=== PATIENT | male | born 1965 | race Caucasian/White ===

== ENCOUNTER 2019-04-05 08:36 | Emergency (ER) | payer MEDICARE, OTHER ==
[2019-04-05 09:24] LABS: Appearance,Urine Clear (Clear); Bilirubin,Urine Negative (Negative); Blood,Urine Negative (Negative); Color,Urine Colorless; Glucose,Urine (UA) 3+ (Negative); Ketones,Urine Negative (Negative); Leukocyte Esterase,Urine Negative (Negative); Nitrite,Urine Negative (Negative); Protein,Urine Negative (Negative); Specific Gravity,Urine 1.002 (1.001-1.035); Urobilinogen,Urine <2.0 mg/dL (<2.0)
--- NOTE | 2019-04-05 09:44 | ED ---
Recheck HPI - General Chief Complaint: Recheck/Abnormal Lab/Rx Stated Complaint: Low sodium Time Seen by Provider: 04/05/19 08:55 Source: patient, RN notes reviewed Mode of arrival: wheelchair Limitations: no limitations - History of Present Illness Initial Comments: This is a 53-year-old male who presents dizziness lightheadedness he relates to being since his insulin yet changed or last several weeks. He feels fatigued he feels like he has vertigo. Feels lightheaded when he tries to walk he states his been urinating frequently. No fevers chills nausea vomiting sweats however. Additionally his doctor sent him over due to fear of low sodium apparently this is been found on outpatient laboratory work. - Related Data Home Medications Medication Instructions Recorded Confirmed Aspirin EC [Ecotrin Low Dose] 81 mg PO DAILY 04/05/19 04/05/19 Glimepiride [Amaryl] 4 mg PO AC-BRKFST 04/05/19 04/05/19 Hydrochlorothiazide [Hydrodiuril] 25 mg PO DAILY 04/05/19 04/05/19 Ibuprofen [Motrin Ib] 200 - 400 mg PO Q6H PRN 04/05/19 04/05/19 Insulin Detemir [Levemir Flextouch] 60 units SQ HS 04/05/19 04/05/19 Levothyroxine Sodium [Synthroid] 25 mcg PO DAILY 04/05/19 04/05/19 Lisinopril [Zestril] 20 mg PO DAILY 04/05/19 04/05/19 Pantoprazole Sodium [Protonix] 40 mg PO DAILY 04/05/19 04/05/19 Perphenazine [Trilafon] 16 mg PO QAM 04/05/19 04/05/19 Perphenazine [Trilafon] 24 mg PO HS 04/05/19 04/05/19 sitaGLIPtin [Januvia] 100 mg PO DAILY 04/05/19 04/05/19 Previous Rx's Medication Instructions Recorded Meclizine [Antivert] 25 mg PO TID #20 tab 04/05/19 Allergies Allergy/AdvReac Type Severity Reaction Status Date / Time insulin isophane (NPH) AdvReac Nausea & Verified 04/05/19 09:41 [From Novolin 70/30 U-100 Vomiting & Insulin] Diarrhea insulin regular AdvReac Nausea & Verified 04/05/19 09:41 [From Novolin 70/30 U-100 Vomiting & Insulin] Diarrhea nefazodone [From Serzone] AdvReac Nausea & Verified 04/05/19 09:41 Vomiting & Diarrhea risperidone [From Risperdal] AdvReac Nausea & Verified 04/05/19 09:41 Vomiting & Diarrhea Review of Systems ROS Statement: Those systems with pertinent positive or pertinent negative responses have been documented in the HPI. ROS Other: All systems not noted in ROS Statement are negative. Past Medical History Past Medical History: Diabetes Mellitus History of Any Multi-Drug Resistant Organisms: None Reported Past Surgical History: Orthopedic Surgery Additional Past Surgical History / Comment(s): feet Past Psychological History: Schizophrenia Smoking Status: Never smoker Past Alcohol Use History: None Reported Past Drug Use History: None Reported General Exam - General Exam Comments Initial Comments: Is a well-developed well-nourished awake alert oriented times 3 male Limitations: no limitations General appearance: alert, in no apparent distress Head exam: Present: atraumatic, normocephalic, normal inspection Eye exam: Present: normal appearance, PERRL, EOMI. Absent: scleral icterus, conjunctival injection, periorbital swelling ENT exam: Present: mucous membranes dry Neck exam: Present: normal inspection. Absent: tenderness, meningismus, lymphadenopathy Respiratory exam: Present: normal lung sounds bilaterally. Absent: respiratory distress, wheezes, rales, rhonchi, stridor Cardiovascular Exam: Present: regular rate, normal rhythm, normal heart sounds. Absent: systolic murmur, diastolic murmur, rubs, gallop, clicks GI/Abdominal exam: Present: soft, normal bowel sounds. Absent: distended, tenderness, guarding, rebound, rigid Extremities exam: Present: normal inspection, full ROM, normal capillary refill. Absent: tenderness, pedal edema, joint swelling, calf tenderness Back exam: Present: normal inspection Neurological exam: Present: alert, oriented X3, CN II-XII intact Psychiatric exam: Present: normal affect, normal mood Skin exam: Present: warm, dry, intact, normal color. Absent: rash Course Vital Signs 04/05/19 04/05/19 04/05/19 08:41 09:07 09:22 Temperature 98.4 F Pulse Rate 97 91 Respiratory 20 18 Rate Blood Pressure 142/87 146/91 156/91 O2 Sat by Pulse 97 93 L 98 Oximetry 04/05/19 04/05/19 04/05/19 09:30 10:00 10:30 Temperature Pulse Rate 99 96 96 Respiratory 16 17 16 Rate Blood Pressure 156/91 159/99 162/99 O2 Sat by Pulse 99 98 98 Oximetry 04/05/19 04/05/19 04/05/19 11:00 11:30 12:00 Temperature Pulse Rate 101 H 98 97 Respiratory 18 16 25 H Rate Blood Pressure 171/78 168/108 157/105 O2 Sat by Pulse 98 98 Oximetry 04/05/19 04/05/19 04/05/19 12:30 13:00 13:30 Temperature Pulse Rate 89 97 93 Respiratory 16 17 16 Rate Blood Pressure 162/94 159/95 150/96 O2 Sat by Pulse 98 98 Oximetry 04/05/19 14:00 Temperature Pulse Rate 90 Respiratory 17 Rate Blood Pressure 150/91 O2 Sat by Pulse 97 Oximetry Medical Decision Making - Medical Decision Making I did discuss Pfizer the patient be discharged he'll be placed on Antivert he is a follow-up with his doctor return when necessary - Lab Data Result diagrams: 04/05/19 09:40 04/05/19 09:40 Lab Results 04/05/19 04/05/19 04/05/19 Range/Units 09:15 09:40 09:40 WBC 5.9 (3.8-10.6) k/uL RBC 4.34 (4.30-5.90) m/uL Hgb 12.8 L (13.0-17.5) gm/dL Hct 38.0 L (39.0-53.0) % MCV 87.5 (80.0-100.0) fL MCH 29.6 (25.0-35.0) pg MCHC 33.8 (31.0-37.0) g/dL RDW 13.6 (11.5-15.5) % Plt Count 218 (150-450) k/uL Neutrophils % 76 % Lymphocytes % 16 % Monocytes % 4 % Eosinophils % 2 % Basophils % 0 % Neutrophils # 4.5 (1.3-7.7) k/uL Lymphocytes # 0.9 L (1.0-4.8) k/uL Monocytes # 0.3 (0-1.0) k/uL Eosinophils # 0.1 (0-0.7) k/uL Basophils # 0.0 (0-0.2) k/uL PT (9.0-12.0) sec INR (<1.2) APTT (22.0-30.0) sec Sodium 133 L (137-145) mmol/L Potassium 5.1 (3.5-5.1) mmol/L Chloride 96 L (98-107) mmol/L Carbon Dioxide 26 (22-30) mmol/L Anion Gap 11 mmol/L BUN 8 L (9-20) mg/dL Creatinine 0.52 L (0.66-1.25) mg/dL Est GFR (CKD-EPI)AfAm >90 (>60 ml/min/1.73 sqM) Est GFR (CKD-EPI)NonAf >90 (>60 ml/min/1.73 sqM) Glucose 292 H (74-99) mg/dL Plasma Lactic Acid Camilo (0.7-2.0) mmol/L Calcium 9.7 (8.4-10.2) mg/dL Magnesium 1.6 (1.6-2.3) mg/dL Total Bilirubin 0.4 (0.2-1.3) mg/dL AST 41 (17-59) U/L ALT 40 (21-72) U/L Alkaline Phosphatase 60 (38-126) U/L Creatine Kinase 100 (55-170) U/L Troponin I (0.000-0.034) ng/mL NT-Pro-B Natriuret Pep pg/mL Total Protein 7.2 (6.3-8.2) g/dL Albumin 4.7 (3.5-5.0) g/dL Urine Color Colorless Urine Appearance Clear (Clear) Urine pH 7.0 (5.0-8.0) Ur Specific [place] 1.002 (1.001-1.035) Urine Protein Negative (Negative) Urine Glucose (UA) 3+ H (Negative) Urine Ketones Negative (Negative) Urine Blood Negative (Negative) Urine Nitrite Negative (Negative) Urine Bilirubin Negative (Negative) Urine Urobilinogen <2.0 (<2.0) mg/dL Ur Leukocyte Esterase Negative (Negative) 04/05/19 04/05/19 04/05/19 Range/Units 09:40 09:40 09:40 WBC (3.8-10.6) k/uL RBC (4.30-5.90) m/uL Hgb (13.0-17.5) gm/dL Hct (39.0-53.0) % MCV (80.0-100.0) fL MCH (25.0-35.0) pg MCHC (31.0-37.0) g/dL RDW (11.5-15.5) % Plt Count (150-450) k/uL Neutrophils % % Lymphocytes % % Monocytes % % Eosinophils % % Basophils % % Neutrophils # (1.3-7.7) k/uL Lymphocytes # (1.0-4.8) k/uL Monocytes # (0-1.0) k/uL Eosinophils # (0-0.7) k/uL Basophils # (0-0.2) k/uL PT 10.3 (9.0-12.0) sec INR 1.0 (<1.2) APTT 22.3 (22.0-30.0) sec Sodium (137-145) mmol/L Potassium (3.5-5.1) mmol/L Chloride (98-107) mmol/L Carbon Dioxide (22-30) mmol/L Anion Gap mmol/L BUN (9-20) mg/dL Creatinine (0.66-1.25) mg/dL Est GFR (CKD-EPI)AfAm (>60 ml/min/1.73 sqM) Est GFR (CKD-EPI)NonAf (>60 ml/min/1.73 sqM) Glucose (74-99) mg/dL Plasma Lactic Acid Camilo 1.7 (0.7-2.0) mmol/L Calcium (8.4-10.2) mg/dL Magnesium (1.6-2.3) mg/dL Total Bilirubin (0.2-1.3) mg/dL AST (17-59) U/L ALT (21-72) U/L Alkaline Phosphatase (38-126) U/L Creatine Kinase (55-170) U/L Troponin I (0.000-0.034) ng/mL NT-Pro-B Natriuret Pep 16 pg/mL Total Protein (6.3-8.2) g/dL Albumin (3.5-5.0) g/dL Urine Color Urine Appearance (Clear) Urine pH (5.0-8.0) Ur Specific [place] (1.001-1.035) Urine Protein (Negative) Urine Glucose (UA) (Negative) Urine Ketones (Negative) Urine Blood (Negative) Urine Nitrite (Negative) Urine Bilirubin (Negative) Urine Urobilinogen (<2.0) mg/dL Ur Leukocyte Esterase (Negative) 04/05/19 Range/Units 09:40 WBC (3.8-10.6) k/uL RBC (4.30-5.90) m/uL Hgb (13.0-17.5) gm/dL Hct (39.0-53.0) % MCV (80.0-100.0) fL MCH (25.0-35.0) pg MCHC (31.0-37.0) g/dL RDW (11.5-15.5) % Plt Count (150-450) k/uL Neutrophils % % Lymphocytes % % Monocytes % % Eosinophils % % Basophils % % Neutrophils # (1.3-7.7) k/uL Lymphocytes # (1.0-4.8) k/uL Monocytes # (0-1.0) k/uL Eosinophils # (0-0.7) k/uL Basophils # (0-0.2) k/uL PT (9.0-12.0) sec INR (<1.2) APTT (22.0-30.0) sec Sodium (137-145) mmol/L Potassium (3.5-5.1) mmol/L Chloride (98-107) mmol/L Carbon Dioxide (22-30) mmol/L Anion Gap mmol/L BUN (9-20) mg/dL Creatinine (0.66-1.25) mg/dL Est GFR (CKD-EPI)AfAm (>60 ml/min/1.73 sqM) Est GFR (CKD-EPI)NonAf (>60 ml/min/1.73 sqM) Glucose (74-99) mg/dL Plasma Lactic Acid Camilo (0.7-2.0) mmol/L Calcium (8.4-10.2) mg/dL Magnesium (1.6-2.3) mg/dL Total Bilirubin (0.2-1.3) mg/dL AST (17-59) U/L ALT (21-72) U/L Alkaline Phosphatase (38-126) U/L Creatine Kinase (55-170) U/L Troponin I <0.012 (0.000-0.034) ng/mL NT-Pro-B Natriuret Pep pg/mL Total Protein (6.3-8.2) g/dL Albumin (3.5-5.0) g/dL Urine Color Urine Appearance (Clear) Urine pH (5.0-8.0) Ur Specific [place] (1.001-1.035) Urine Protein (Negative) Urine Glucose (UA) (Negative) Urine Ketones (Negative) Urine Blood (Negative) Urine Nitrite (Negative) Urine Bilirubin (Negative) Urine Urobilinogen (<2.0) mg/dL Ur Leukocyte Esterase (Negative) - EKG Data -: EKG Interpreted by Me EKG shows normal: sinus rhythm (Normal sinus rhythm a 93. Interval 140 QRS duration 92 QT since QTC 372/[address]-T wave changes) - Radiology Data Radiology results: report reviewed (I did review the imaging and reports no acute findings.), image reviewed Disposition Clinical Impression: Benign positional vertigo, Hyperglycemia due to type 1 diabetes mellitus Disposition: HOME SELF-CARE Condition: Good Instructions (If sedation given, give patient instructions): Benign Paroxysmal Positional Vertigo (ED), Dizziness (ED), Diabetic Hyperglycemia (ED) Prescriptions: Meclizine [Antivert] 25 mg PO TID #20 tab Is patient prescribed a controlled substance at d/c from ED?: No Referrals: Charity Munoz DO [Primary Care Provider] - 1-2 days
[2019-04-05 09:52] LABS: Basophils % (A) 0 %; Eosinophils # (A) 0.1 k/uL (0-0.7); Eosinophils % (A) 2 %; HGB 12.8 gm/dL (13.0-17.5); Lymphocytes # (A) 0.9 k/uL (1.0-4.8); Lymphocytes % (A) 16 %; MCH 29.6 pg (25.0-35.0); MCHC 33.8 g/dL (31.0-37.0); MCV 87.5 fL (80.0-100.0); Mean Platelet Volume 8.2; Monocytes # (A) 0.3 k/uL (0-1.0); Monocytes % (A) 4 %; Neutrophils # (A) 4.5 k/uL (1.3-7.7); Neutrophils % (A) 76 %; Platelet Count 218 k/uL (150-450); RBC 4.34 m/uL (4.30-5.90); RDW 13.6 % (11.5-15.5); WBC 5.9 k/uL (3.8-10.6)
[2019-04-05 10:02] LABS: Partial Thromboplastin Time 22.3 sec (22.0-30.0); Prothrombin Time 10.3 sec (9.0-12.0)
[2019-04-05 10:03] LABS: ALT 40 U/L (21-72); AST 41 U/L (17-59); African American GFR (CKD) >90 (>60 ml/min/1.73 sqM); Albumin 4.7 g/dL (3.5-5.0); Alkaline Phosphatase 60 U/L (38-126); Anion Gap 11 mmol/L; Blood Urea Nitrogen 8 mg/dL (9-20); Calcium 9.7 mg/dL (8.4-10.2); Carbon Dioxide 26 mmol/L (22-30); Chloride 96 mmol/L (98-107); Creatine Kinase 100 U/L (55-170); Glucose 292 mg/dL (74-99); Magnesium 1.6 mg/dL (1.6-2.3); Potassium 5.1 mmol/L (3.5-5.1); Sodium 133 mmol/L (137-145); Total Bilirubin 0.4 mg/dL (0.2-1.3); Total Protein 7.2 g/dL (6.3-8.2)
--- NOTE | 2019-04-05 10:07 | XR ---
EXAMINATION TYPE: XR chest 2V DATE OF EXAM: 04/05/2019 COMPARISON: NONE HISTORY: Hyponatremia, dizziness and weakness TECHNIQUE: Frontal and lateral views of the chest are obtained. FINDINGS: There is no focal air space opacity, pleural effusion, or pneumothorax seen. The cardiac silhouette size is within normal limits. The osseous structures are intact. There are overlying car diac leads. IMPRESSION: No acute cardiopulmonary process.
[2019-04-05 14:29] VITALS: BP 151/91; PULSE 93; RESP 18; TEMP 98.2
[2019-04-05 18:43] LABS: Hemoglobin A1C 8.5 % (4.0-6.0)
== END 2019-04-05 14:28 | disposition home or self-care (01) ==
LOC: EC 08:36
DX: E10.65 Type 1 diabetes mellitus with hyperglycemia (principal); H81.10 Benign paroxysmal vertigo, unspecified ear; F20.9 Schizophrenia, unspecified; Z88.8 Allergy status to other drugs, medicaments and biological substances; Z79.4 Long term (current) use of insulin; Z79.82 Long term (current) use of aspirin; Z79.890 Hormone replacement therapy; Z79.899 Other long term (current) drug therapy
CPT/HCPCS: 36415; 71046; 80053; 81003; 82550; 83036; 83605; 83735; 83880; 84484; 85025; 85610; 85730; 93005; 99284

== ENCOUNTER 2021-06-15 13:42 | Inpatient (IN) | payer MEDICARE, OTHER ==
[2021-06-15] MEDS ORDERED: LORazepam 2 MG/ML INJ IM STA (14:24)
--- NOTE | 2021-06-15 14:25 | ED ---
General Adult HPI - General Source: patient, RN notes reviewed, old records reviewed Mode of arrival: ambulatory Limitations: no limitations <Robert Young - Last Filed: 06/15/21 14:41> <Jan Steve - Last Filed: 06/15/21 15:58> - General Chief complaint: Chest Pain Stated complaint: weakness, Dizziness Time Seen by Provider: 06/15/21 14:00 - History of Present Illness Initial comments: This is a 56-year-old male who has past medical history significant for anxiety. Patient states she's been treated for that he stopped this medication in the morning because he feels so for the last 6 months his body is feeling. Patient is very anxious and tearful during the interview. Patient states his body is failing and he said this over and over again at least 10 times while I was in the room. Patient has no specific complaint. Patient denies any pain patient denies chest pain abdominal pain. Patient denies near syncopal episodes. Patient denies any fever chills. Patient denies any shortness of breath or difficulty breathing. Patient just keeps repeating that he thinks his body is feeling pretty also admits to not taking his psychiatric medications for the last 2 weeks. (Robert Young) - Related Data Home Medications Medication Instructions Recorded Confirmed Aspirin EC [Ecotrin Low Dose] 81 mg PO DAILY 04/05/19 04/05/19 Glimepiride [Amaryl] 4 mg PO AC-BRKFST 04/05/19 04/05/19 Ibuprofen [Motrin Ib] 200 - 400 mg PO Q6H PRN 04/05/19 04/05/19 Insulin Detemir [Levemir Flextouch] 60 units SQ HS 04/05/19 04/05/19 Levothyroxine Sodium [Synthroid] 25 mcg PO DAILY 04/05/19 04/05/19 Pantoprazole Sodium [Protonix] 40 mg PO DAILY 04/05/19 04/05/19 Perphenazine [Trilafon] 16 mg PO QAM 04/05/19 04/05/19 Perphenazine [Trilafon] 24 mg PO HS 04/05/19 04/05/19 hydroCHLOROthiazide [Hydrodiuril] 25 mg PO DAILY 04/05/19 04/05/19 lisinopriL [Zestril] 20 mg PO DAILY 04/05/19 04/05/19 sitaGLIPtin [Januvia] 100 mg PO DAILY 04/05/19 04/05/19 Previous Rx's Medication Instructions Recorded Meclizine [Antivert] 25 mg PO TID #20 tab 04/05/19 Allergies Allergy/AdvReac Type Severity Reaction Status Date / Time insulin isophane (NPH) AdvReac Nausea & Verified 06/15/21 14:04 [From Novolin 70/30 U-100 Vomiting & Insulin] Diarrhea insulin regular AdvReac Nausea & Verified 06/15/21 14:04 [From Novolin 70/30 U-100 Vomiting & Insulin] Diarrhea nefazodone [From Serzone] AdvReac Nausea & Verified 06/15/21 14:04 Vomiting & Diarrhea risperidone [From Risperdal] AdvReac Nausea & Verified 06/15/21 14:04 Vomiting & Diarrhea Review of Systems ROS Other: All systems not noted in ROS Statement are negative. <Robert Young - Last Filed: 06/15/21 14:41> ROS Other: All systems not noted in ROS Statement are negative. <Jan Steve - Last Filed: 06/15/21 15:58> ROS Statement: Those systems with pertinent positive or pertinent negative responses have been documented in the HPI. Past Medical History Past Medical History: Diabetes Mellitus History of Any Multi-Drug Resistant Organisms: None Reported Past Surgical History: Orthopedic Surgery Additional Past Surgical History / Comment(s): feet Past Psychological History: Schizophrenia Smoking Status: Current every day smoker Past Alcohol Use History: None Reported Past Drug Use History: None Reported <Robert Young - Last Filed: 06/15/21 14:41> General Exam Limitations: no limitations <Robert Young - Last Filed: 06/15/21 14:41> - General Exam Comments Initial Comments: GENERAL: Patient is well-developed and well-nourished. Patient is nontoxic and well- hydrated and is in no acute distress. ENT: Neck is soft and supple. No significant lymphadenopathy is noted. Oropharynx is clear. Moist mucous membranes. Neck has full range of motion without eliciting any pain. EYES: The sclera were anicteric and conjunctiva were pink and moist. Extraocular movements were intact and pupils were equal round and reactive to light. Eyelids were unremarkable. PULMONARY: Unlabored respirations. Good breath sounds bilaterally. No audible rales rhonchi or wheezing was noted. CARDIOVASCULAR: There is a regular rate and rhythm without any murmurs gallops or rubs. ABDOMEN: Soft and nontender with normal bowel sounds. SKIN: Skin is clear with no lesions or rashes and otherwise unremarkable. NEUROLOGIC: Patient is alert and oriented x3. Cranial nerves II through XII are grossly intact. Motor and sensory are also intact. Normal speech, volume and content. Symmetrical smile. MUSCULOSKELETAL: Normal extremities with adequate strength and full range of motion. No lower extremity swelling or edema. No calf tenderness. LYMPHATICS: No significant lymphadenopathy is noted PSYCHIATRIC: Patient is very anxious and tearful during interview he stated to me that he thought 2 weeks ago he might so he stopped his psychiatric medications and is zetia (Robert Young) Course <Jan Steve - Last Filed: 06/15/21 15:58> Vital Signs 06/15/21 14:04 Temperature 98.6 F Pulse Rate 91 Respiratory 18 Rate Blood Pressure 138/88 O2 Sat by Pulse 98 Oximetry - Reevaluation(s) Reevaluation #1: 06/15/21 15:57 The patient was endorsed me at shift change pending laboratory results. I did reevaluate the patient he is still feeling very anxious and feels like his bicycle him he feels off balance and his is going to fall. He was found have a sodium level of 123. Evidence of dehydration clinically. No focal deficits. I did discuss the case with Dr. Gamboa the patient will be admitted for IV hydration and inpatient evaluation (Jan Steve) EKG Findings - EKG Results: EKG: interpreted by ERMD, sinus rhythm (Sinus rhythm of 89 [place] interval 144 QRS 96 daily since QTC 380/462 possible left atrial enlargement) <Jan Steve - Last Filed: 06/15/21 15:58> Medical Decision Making <Robert Young - Last Filed: 06/15/21 14:41> - Lab Data Result diagrams: 06/15/21 14:28 06/15/21 14:28 <Jan Steve - Last Filed: 06/15/21 15:58> - Medical Decision Making Dr. Steve taking over the care of this patient at 3 PM (Robert Young) - Lab Data Lab Results 06/15/21 06/15/21 Range/Units 14:28 14:28 WBC 5.4 (3.8-10.6) k/uL RBC 4.50 (4.30-5.90) m/uL Hgb 13.7 (13.0-17.5) gm/dL Hct 40.4 (39.0-53.0) % MCV 89.7 (80.0-100.0) fL MCH 30.4 (25.0-35.0) pg MCHC 33.9 (31.0-37.0) g/dL RDW 14.6 (11.5-15.5) % Plt Count 161 (150-450) k/uL MPV 8.0 Neutrophils % 76 % Lymphocytes % 14 % Monocytes % 6 % Eosinophils % 1 % Basophils % 0 % Neutrophils # 4.1 (1.3-7.7) k/uL Lymphocytes # 0.8 L (1.0-4.8) k/uL Monocytes # 0.3 (0-1.0) k/uL Eosinophils # 0.0 (0-0.7) k/uL Basophils # 0.0 (0-0.2) k/uL Poikilocytosis Slight Sodium 123 L (137-145) mmol/L Potassium 4.2 (3.5-5.1) mmol/L Chloride 91 L (98-107) mmol/L Carbon Dioxide 21 L (22-30) mmol/L Anion Gap 11 mmol/L BUN 7 L (9-20) mg/dL Creatinine 0.51 L (0.66-1.25) mg/dL Est GFR (CKD-EPI)AfAm >90 (>60 ml/min/1.73 sqM) Est GFR (CKD-EPI)NonAf >90 (>60 ml/min/1.73 sqM) Glucose 243 H (74-99) mg/dL Calcium 9.6 (8.4-10.2) mg/dL Total Bilirubin 0.4 (0.2-1.3) mg/dL AST 36 (17-59) U/L ALT 43 (4-49) U/L Alkaline Phosphatase 75 (38-126) U/L Total Protein 6.9 (6.3-8.2) g/dL Albumin 4.5 (3.5-5.0) g/dL Disposition <Robert Young - Last Filed: 06/15/21 14:41> <Jan Steve - Last Filed: 06/15/21 15:58> Clinical Impression: Hyponatremia syndrome, Dehydration Disposition: ADMITTED IP TO THIS HOSP Condition: Fair Referrals: Charity Munoz DO [Primary Care Provider] - 1-2 days
[2021-06-15 14:49] LABS: Basophils % (A) 0 %; Eosinophils % (A) 1 %; HCT 40.4 % (39.0-53.0); HGB 13.7 gm/dL (13.0-17.5); Lymphocytes # (A) 0.8 k/uL (1.0-4.8); Lymphocytes % (A) 14 %; MCH 30.4 pg (25.0-35.0); MCHC 33.9 g/dL (31.0-37.0); MCV 89.7 fL (80.0-100.0); Monocytes # (A) 0.3 k/uL (0-1.0); Monocytes % (A) 6 %; Neutrophils # (A) 4.1 k/uL (1.3-7.7); Neutrophils % (A) 76 %; Platelet Count 161 k/uL (150-450); Poikilocytosis Slight; RDW 14.6 % (11.5-15.5); WBC 5.4 k/uL (3.8-10.6)
[2021-06-15 15:06] LABS: ALT 43 U/L (4-49); AST 36 U/L (17-59); African American GFR (CKD) >90 (>60 ml/min/1.73 sqM); Albumin 4.5 g/dL (3.5-5.0); Alkaline Phosphatase 75 U/L (38-126); Anion Gap 11 mmol/L; Blood Urea Nitrogen 7 mg/dL (9-20); Calcium 9.6 mg/dL (8.4-10.2); Carbon Dioxide 21 mmol/L (22-30); Chloride 91 mmol/L (98-107); Glucose 243 mg/dL (74-99); Non-African American GFR(CKD) >90 (>60 ml/min/1.73 sqM); Potassium 4.2 mmol/L (3.5-5.1); Sodium 123 mmol/L (137-145); Total Bilirubin 0.4 mg/dL (0.2-1.3); Total Protein 6.9 g/dL (6.3-8.2)
[2021-06-15] MEDS ORDERED: SODIUM CHLORIDE 0.9% 1,000 ML IV STA (15:44)
[2021-06-15] MEDS ORDERED: NALOXONE 0.4 MG/ML 1 ML VIAL IV PRN ×2 (15:59→17:44)
[2021-06-15] MEDS ORDERED: ACETAMINOPHEN TAB 325 MG TAB PO PRN (15:59)
[2021-06-15 16:55] LABS: Glucose,Whole Blood 257 mg/dL (75-99)
--- NOTE | 2021-06-15 17:50 | P.HPIM ---
History of Present Illness H&P Date: 06/15/21 Chief Complaint: hyponatremia 56-year-old man with medical history of diabetes type 2, hyperlipidemia, anxiety, hypertension presented with anxiety. Patient had predominantly general complaints of unease and feeling like he was going to fall and like his body was getting weaker. He could not pinpoint a particular time when the symptoms started, but feels a very severe today. He stopped taking his medication recently because he was concerned that it was making him worse. He stopped taking his psychiatric medications and his zetia. In the emergency room patient was hemodynamically stable, afebrile. Major finding during the ER course was hyponatremia warranting observation admission. Review of Systems All Systems reviewed and pertinent positives and negatives noted in HPI, all other symptoms are negative Past Medical History Past Medical History: Diabetes Mellitus, Hypertension History of Any Multi-Drug Resistant Organisms: None Reported Past Surgical History: Orthopedic Surgery Additional Past Surgical History / Comment(s): feet Smoking Status: Never smoker - Past Family History Mother Family Medical History: Coronary Artery Disease (CAD) Medications and Allergies Home Medications Medication Instructions Recorded Confirmed Type Ibuprofen [Motrin Ib] 800 mg PO Q6H 04/05/19 06/15/21 History Insulin Detemir [Levemir Flextouch] 60 units SQ HS 04/05/19 06/15/21 History Levothyroxine Sodium [Synthroid] 25 mcg PO DAILY 04/05/19 06/15/21 History Pantoprazole Sodium [Protonix] 40 mg PO DAILY 04/05/19 06/15/21 History hydroCHLOROthiazide [Hydrodiuril] 25 mg PO DAILY 04/05/19 06/15/21 History lisinopriL [Zestril] 20 mg PO HS 04/05/19 06/15/21 History sitaGLIPtin [Januvia] 100 mg PO DAILY 04/05/19 06/15/21 History Atorvastatin [Lipitor] 20 mg PO HS 06/15/21 06/15/21 History Multivit-Min/FA/Lycopen/Lutein 1 tab PO DAILY 06/15/21 06/15/21 History [Centrum Silver Tablet] Perphenazine 8mg Tablet 24 mg PO DAILY@1600 06/15/21 06/15/21 History Repaglinide 1 mg PO DAILY 06/15/21 06/15/21 History Repaglinide 2 mg PO HS 06/15/21 06/15/21 History metFORMIN HCL [Glucophage] 1,000 mg PO BID 06/15/21 06/15/21 History Allergies Allergy/AdvReac Type Severity Reaction Status Date / Time insulin isophane (NPH) AdvReac Nausea & Verified 06/15/21 16:32 [From Novolin 70/30 U-100 Vomiting & Insulin] Diarrhea insulin regular AdvReac Nausea & Verified 06/15/21 16:32 [From Novolin 70/30 U-100 Vomiting & Insulin] Diarrhea nefazodone [From Serzone] AdvReac Nausea & Verified 06/15/21 16:32 Vomiting & Diarrhea risperidone [From Risperdal] AdvReac Nausea & Verified 06/15/21 16:32 Vomiting & Diarrhea Physical Exam Osteopathic Statement: *. No significant issues noted on an osteopathic structural exam other than those noted in the History and Physical/Consult. Vitals: Vital Signs Temp Pulse Pulse Resp BP BP Pulse Ox 06/15/21 17:21 98.7 F 98 17 157/97 96 06/15/21 16:34 89 16 141/90 96 06/15/21 14:04 98.6 F 91 18 138/88 98 Intake and Output 06/15/21 06/15/21 06/15/21 06:59 14:59 22:59 Other: Weight 104.326 kg 104.326 kg Gen: awake, alert HEENT: normocephalic, atraumatic, good hearing acuity, moist mucous membranes Resp: good air exchange, breathing comfortably with no accessory muscle use CVS: good distal perfusion x 4, GI: soft, NTTP, ND : no SPT, no CVAT, johnson catheter not present MSK: no pitting edema, no clubbing Neuro: non-focal, moving all extremities Psych: cooperative, anxious mood Results CBC & Chem 7: 06/15/21 14:28 06/15/21 14:28 Labs: Abnormal Lab Results - Last 24 Hours (Table) 06/15/21 06/15/21 06/15/21 Range/Units 14:28 14:28 16:54 Lymphocytes # 0.8 L (1.0-4.8) k/uL Sodium 123 L (137-145) mmol/L Chloride 91 L (98-107) mmol/L Carbon Dioxide 21 L (22-30) mmol/L BUN 7 L (9-20) mg/dL Creatinine 0.51 L (0.66-1.25) mg/dL Glucose 243 H (74-99) mg/dL POC Glucose (mg/dL) 257 H (75-99) mg/dL Thrombosis Risk Factor Assmnt - Choose All That Apply Each Factor Represents 1 point: Age 41-60 years Thrombosis Risk Factor Assessment Total Risk Factor Score: 1 Thrombosis Risk Factor Assessment Level: Low Risk Assessment and Plan Assessment: Hyponatremia -Admit to observation -IV fluids -Serum osmolality, urine osmolality -Hold hydrochlorothiazide Hypertension Hyperlipidemia Anxiety Diabetes type 2 -Home medications reviewed and reconciled -Oral hypoglycemics were held -Continue home insulin regimen and add low-dose sliding scale insulin Patient is a full code
[2021-06-15 20:06] VITALS: RESP 16
[2021-06-15 20:59] LABS: Glucose,Whole Blood 223 mg/dL (75-99)
[2021-06-15] MEDS ORDERED: ATORVASTATIN 20 MG TAB PO SCH (21:00)
[2021-06-15] MEDS ORDERED: INSULIN DETEMIR (LEVEMIR) 100 UNIT/ML SYR SQ SCH (21:00)
[2021-06-15] MEDS ORDERED: lisinopriL 20 MG TAB PO SCH (21:00)
[2021-06-16 04:59] VITALS: BP 125/81; PULSE 91; TEMP 98
[2021-06-16] MEDS ORDERED: LEVOTHYROXINE 25 MCG TAB PO SCH (06:30)
[2021-06-16 06:43] LABS: Basophils % (A) 0 %; Eosinophils % (A) 1 %; HCT 42.7 % (39.0-53.0); HGB 14.4 gm/dL (13.0-17.5); Lymphocytes # (A) 1.1 k/uL (1.0-4.8); Lymphocytes % (A) 23 %; MCH 30.8 pg (25.0-35.0); MCHC 33.9 g/dL (31.0-37.0); Mean Platelet Volume 7.5; Monocytes # (A) 0.4 k/uL (0-1.0); Monocytes % (A) 8 %; Neutrophils # (A) 3.1 k/uL (1.3-7.7); Neutrophils % (A) 64 %; Platelet Count 168 k/uL (150-450); Poikilocytosis Slight; RBC 4.69 m/uL (4.30-5.90); RDW 14.3 % (11.5-15.5); WBC 4.9 k/uL (3.8-10.6)
[2021-06-16 07:20] LABS: Glucose,Whole Blood 206 mg/dL (75-99)
[2021-06-16 07:22] LABS: African American GFR (CKD) >90 (>60 ml/min/1.73 sqM); Anion Gap 11 mmol/L; Blood Urea Nitrogen 8 mg/dL (9-20); Calcium 10.1 mg/dL (8.4-10.2); Carbon Dioxide 25 mmol/L (22-30); Chloride 97 mmol/L (98-107); Glucose 171 mg/dL (74-99); Magnesium 1.6 mg/dL (1.6-2.3); Non-African American GFR(CKD) >90 (>60 ml/min/1.73 sqM); Potassium 4.5 mmol/L (3.5-5.1); Sodium 133 mmol/L (137-145)
[2021-06-16] MEDS ORDERED: INSULIN ASPART (NovoLOG) 100 UNIT/ML VIAL SQ SCH (07:30)
[2021-06-16] MEDS ORDERED: PANTOPRAZOLE 40 MG TABLET PO SCH (09:00)
[2021-06-16] MEDS ORDERED: MULTIVITAMINS, THERA 1 EACH TAB PO SCH (12:00)
--- NOTE | 2021-06-16 13:09 | P.DS ---
Providers Date of admission: 06/15/21 16:09 Expected date of discharge: 06/16/21 Attending physician: Betsy Gamboa MD Primary care physician: Charity Munoz Hospital Course: Hyponatremia -Admitted to observation. Started on IVF. HCTz was held. Pt recovered to normal Na of 133 by day of discharge. Had no further symptoms, and reported feeling back to baseline. D/c'd with HCTZ stopped and started on amlodipine. Pt will f/u with PCP for further titration of meds. Hypertension Hyperlipidemia Anxiety Diabetes type 2 -BP medication changes as above, otherwise, no changes. Assessment: Gen: awake, alert HEENT: normocephalic, atraumatic, good hearing acuity, moist mucous membranes Resp: good air exchange, breathing comfortably with no accessory muscle use CVS: good distal perfusion x 4, GI: soft, NTTP, ND : no SPT, no CVAT, johnson catheter not present MSK: no pitting edema, no clubbing Neuro: non-focal, moving all extremities Psych: cooperative, anxious mood Patient Condition at Discharge: Good Plan - Discharge Summary New Discharge Prescriptions: New amLODIPine [Norvasc] 5 mg PO DAILY #30 tab Continue lisinopriL [Zestril] 20 mg PO HS Ibuprofen [Motrin Ib] 800 mg PO Q6H sitaGLIPtin [Januvia] 100 mg PO DAILY Pantoprazole Sodium [Protonix] 40 mg PO DAILY Levothyroxine Sodium [Synthroid] 25 mcg PO DAILY Insulin Detemir [Levemir Flextouch Pen] 60 units SQ HS Perphenazine 8mg Tablet 24 mg PO DAILY@1600 Multivit-Min/FA/Lycopen/Lutein [Centrum Silver Tablet] 1 tab PO DAILY Repaglinide 2 mg PO HS metFORMIN HCL [Glucophage] 1,000 mg PO BID Atorvastatin [Lipitor] 20 mg PO HS Discontinued hydroCHLOROthiazide [Hydrodiuril] 25 mg PO DAILY No Action Repaglinide 1 mg PO DAILY Discharge Medication List Ibuprofen [Motrin Ib] 800 mg PO Q6H 04/05/19 [History] Insulin Detemir [Levemir Flextouch Pen] 60 units SQ HS 04/05/19 [History] Levothyroxine Sodium [Synthroid] 25 mcg PO DAILY 04/05/19 [History] Pantoprazole Sodium [Protonix] 40 mg PO DAILY 04/05/19 [History] lisinopriL [Zestril] 20 mg PO HS 04/05/19 [History] sitaGLIPtin [Januvia] 100 mg PO DAILY 04/05/19 [History] Atorvastatin [Lipitor] 20 mg PO HS 06/15/21 [History] Multivit-Min/FA/Lycopen/Lutein [Centrum Silver Tablet] 1 tab PO DAILY 06/15/21 [History] Perphenazine 8mg Tablet 24 mg PO DAILY@1600 06/15/21 [History] Repaglinide 1 mg PO DAILY 06/15/21 [History] Repaglinide 2 mg PO HS 06/15/21 [History] metFORMIN HCL [Glucophage] 1,000 mg PO BID 06/15/21 [History] amLODIPine [Norvasc] 5 mg PO DAILY #30 tab 06/16/21 [Rx] Follow up Appointment(s)/Referral(s): Charity Munoz DO [Primary Care Provider] - 1-2 days Patient Instructions/Handouts: Amlodipine (By mouth), Hyponatremia (DC) Discharge Disposition: HOME SELF-CARE
[2021-06-16] MEDS ORDERED: PERPHENAZINE 4 MG TAB PO SCH (16:00)
== END 2021-06-16 12:40 | disposition home or self-care (01) | DRG 641 ==
LOC: EC 13:42 → 5NMEDONC 16:09
PROVIDERS: ADMIT Internal Medicine; ATTEND Internal Medicine
DX: E87.1 Hypo-osmolality and hyponatremia (principal); E11.9 Type 2 diabetes mellitus without complications; Z79.4 Long term (current) use of insulin; F20.9 Schizophrenia, unspecified; E86.0 Dehydration; I10 Essential (primary) hypertension; E78.5 Hyperlipidemia, unspecified; F41.9 Anxiety disorder, unspecified; Z79.82 Long term (current) use of aspirin; Z79.890 Hormone replacement therapy; Z79.1 Long term (current) use of non-steroidal anti-inflammatories (NSAID); Z79.899 Other long term (current) drug therapy; Z88.8 Allergy status to other drugs, medicaments and biological substances; Z82.49 Family history of ischemic heart disease and other diseases of the circulatory system
CPT/HCPCS: 36415; 80048; 80053; 83735; 83930; 83935; 85025; 93005; 96372; 99284

== ENCOUNTER 2022-10-22 15:04 | Emergency (ER) | payer MEDICARE, OTHER ==
[2022-10-22 19:00] LABS: Basophils # (A) 0.1 k/uL (0-0.2); Basophils % (A) 1 %; Eosinophils # (A) 0.1 k/uL (0-0.7); Eosinophils % (A) 1 %; HCT 38.9 % (39.0-53.0); HGB 14.3 gm/dL (13.0-17.5); Lymphocytes # (A) 2.3 k/uL (1.0-4.8); Lymphocytes % (A) 26 %; MCH 30.4 pg (25.0-35.0); MCHC 36.7 g/dL (31.0-37.0); Mean Platelet Volume 7.9; Monocytes # (A) 0.4 k/uL (0-1.0); Monocytes % (A) 5 %; Neutrophils # (A) 5.9 k/uL (1.3-7.7); Neutrophils % (A) 66 %; Platelet Count 229 k/uL (150-450); RBC 4.69 m/uL (4.30-5.90); RDW 12.3 % (11.5-15.5); WBC 8.9 k/uL (3.8-10.6)
[2022-10-22 19:08] LABS: ALT 34 U/L (4-49); AST 24 U/L (17-59); African American GFR (CKD) >90 (>60 ml/min/1.73 sqM); Albumin 4.8 g/dL (3.5-5.0); Alkaline Phosphatase 71 U/L (38-126); Anion Gap 11 mmol/L; Blood Urea Nitrogen 4 mg/dL (9-20); Calcium 9.4 mg/dL (8.4-10.2); Carbon Dioxide 25 mmol/L (22-30); Chloride 96 mmol/L (98-107); Glucose 165 mg/dL (74-99); Non-African American GFR(CKD) >90 (>60 ml/min/1.73 sqM); Potassium 4.2 mmol/L (3.5-5.1); Sodium 132 mmol/L (137-145); Total Bilirubin 0.5 mg/dL (0.2-1.3); Total Protein 7.5 g/dL (6.3-8.2)
[2022-10-22 19:25] LABS: Prothrombin Time 10.2 sec (9.0-12.0)
--- NOTE | 2022-10-22 20:32 | XR ---
EXAMINATION TYPE: XR chest 2V DATE OF EXAM: 10/22/2022 COMPARISON: Chest x-ray April 05, 2019 HISTORY: Weakness. TECHNIQUE: Frontal and lateral views of the chest are obtained. FINDINGS: There is some chronic parenchymal change bilaterally without suspicious new focal air spac e opacity, pleural effusion, or pneumothorax seen. The cardiac silhouette size is stable and within normal limits. The osseous structures are intact. IMPRESSION: No acute cardiopulmonary process. No significant change from prior.
--- NOTE | 2022-10-22 20:36 | ED ---
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 The patient was clearly developmentally delayed and cannot provide a thorough history. The patient however denied any acute distress or pain and stated that he wishes feeling weak. There was no other person accompanying the patient and therefore no further history was obtained at this time. - Related Data Home Medications Medication Instructions Recorded Confirmed Ibuprofen [Motrin Ib] 800 mg PO Q6H 04/05/19 06/15/21 Insulin Detemir [Levemir Flextouch 60 units SQ HS 04/05/19 06/15/21 Pen] Levothyroxine Sodium [Synthroid] 25 mcg PO DAILY 04/05/19 06/15/21 Pantoprazole Sodium [Protonix] 40 mg PO DAILY 04/05/19 06/15/21 lisinopriL [Zestril] 20 mg PO HS 04/05/19 06/15/21 sitaGLIPtin [Januvia] 100 mg PO DAILY 04/05/19 06/15/21 Atorvastatin [Lipitor] 20 mg PO HS 06/15/21 06/15/21 Multivit-Min/FA/Lycopen/Lutein 1 tab PO DAILY 06/15/21 06/15/21 [Centrum Silver Tablet] Perphenazine 8mg Tablet 24 mg PO DAILY@1600 06/15/21 06/15/21 Repaglinide 1 mg PO DAILY 06/15/21 06/15/21 Repaglinide 2 mg PO HS 06/15/21 06/15/21 metFORMIN HCL [Glucophage] 1,000 mg PO BID 06/15/21 06/15/21 Previous Rx's Medication Instructions Recorded amLODIPine [Norvasc] 5 mg PO DAILY #30 tab 06/16/21 Allergies Allergy/AdvReac Type Severity Reaction Status Date / Time insulin isophane (NPH) AdvReac Nausea & Verified 10/22/22 15:47 [From Novolin 70/30 U-100 Vomiting & Insulin] Diarrhea insulin regular AdvReac Nausea & Verified 10/22/22 15:47 [From Novolin 70/30 U-100 Vomiting & Insulin] Diarrhea nefazodone [From Serzone] AdvReac Nausea & Verified 10/22/22 15:47 Vomiting & Diarrhea risperidone [From Risperdal] AdvReac Nausea & Verified 10/22/22 15:47 Vomiting & Diarrhea Review of Systems ROS Statement: Those systems with pertinent positive or pertinent negative responses have been documented in the HPI. ROS Other: All systems not noted in ROS Statement are negative. Past Medical History Past Medical History: Diabetes Mellitus, Hypertension History of Any Multi-Drug Resistant Organisms: None Reported Past Surgical History: Orthopedic Surgery Additional Past Surgical History / Comment(s): feet Past Psychological History: Anxiety, Schizophrenia Smoking Status: Never smoker Past Alcohol Use History: None Reported Past Drug Use History: None Reported - Past Family History Mother Family Medical History: Coronary Artery Disease (CAD) General Exam Limitations: no limitations General appearance: alert, in no apparent distress Head exam: Present: atraumatic, normocephalic Eye exam: Present: normal appearance, PERRL Pupils: Present: normal accommodation ENT exam: Present: normal exam, normal oropharynx, mucous membranes moist Neck exam: Present: normal inspection, full ROM Respiratory exam: Present: normal lung sounds bilaterally Cardiovascular Exam: Present: regular rate, normal rhythm, normal heart sounds GI/Abdominal exam: Present: soft, normal bowel sounds Extremities exam: Present: normal inspection, full ROM, normal capillary refill Back exam: Present: normal inspection, full ROM Neurological exam: Present: alert, oriented X3 (Patient is developmentally delayed), CN II-XII intact Psychiatric exam: Present: normal affect, normal mood Skin exam: Present: warm, dry Course Vital Signs 10/22/22 10/22/22 10/22/22 15:44 20:41 20:56 Temperature 98.7 F 98.4 F Pulse Rate 106 H 124 H 128 H Respiratory 20 20 18 Rate Blood Pressure 165/98 192/111 199/119 O2 Sat by Pulse 97 97 96 Oximetry EKG Findings - EKG Comments: EKG Findings:: An EKG was obtained and was interpreted by myself. EKG showed a rate of 102, CO intervals 141, QRS duration of 106 and QTC of 417. This EKG showed a sinus tachycardia with no ST segment elevation or depression noted. Medical Decision Making - Medical Decision Making Was pt. sent in by a medical professional or institution (JONATHAN Vargas, VISUAL ARTIST, urgent care, hospital, or longterm...) When possible be specific @ -No Did you speak to anyone other than the patient for history (EMS, parent, family, police, friend...)? What history was obtained from this source @ -No Did you review nursing and triage notes (agree or disagree)? Why? @ -I reviewed and agree with nursing and triage notes Were old charts reviewed (outside hosp., previous admission, EMS record, old EKG, old radiological studies, urgent care reports/EKG's, longterm records)? Report findings @ -No old charts were reviewed Differential Diagnosis (chest pain, altered mental status, abdominal pain women, abdominal pain men, vaginal bleeding, weakness, fever, dyspnea, syncope, headache, dizziness, GI bleed, back pain, seizure, CVA, palpatations, mental health)? @ -Electrolyte abnormality, ACS, pneumonia EKG interpreted by me (3pts min.). @ -As above X-rays interpreted by me (1pt min.). @ -Chest x-ray was obtained and was interpreted by the radiologist as I could not see the image secondary to technical difficulties. Chest x-ray showed no acute cardiopulmonary process and no change from prior exam. CT interpreted by me (1pt min.). @ -None done U/S interpreted by me (1pt. min.). @ -None done What testing was considered but not performed or refused? (CT, X-rays, U/S, labs)? Why? @ -None What meds were considered but not given or refused? Why? @ -None Did you discuss the management of the patient with other professionals (professionals i.e. JONATHAN Vargas, VISUAL ARTIST, lab, RT, psych nurse, marriage and family social worker, processing clerk, teacher, search and rescue officer, case finisher)? Give summary @ -No Was smoking cessation discussed for >3mins.? @ -No Was critical care preformed (if so, how long)? @ -No Were there social determinants of health that impacted care today? How? (Homelessness, low income, unemployed, alcoholism, drug addiction, transportation, low edu. Level, literacy, decrease access to med. care, alf, rehab)? @ -Yes, patient development delayed and living in detention Was there de-escalation of care discussed even if they declined (Discuss DNR or withdrawal of care, Hospice)? DNR status @ -No What co-morbidities impacted this encounter? (DM, HTN, Smoking, COPD, CAD, Cancer, CVA, ARF, Chemo, Hep., AIDS, mental health diagnosis, sleep apnea, morbid obesity)? @ -Developmental delay Was patient admitted / discharged? Hospital course, mention meds given and route, prescriptions, significant lab abnormalities, going to OR and other pertinent info. @ -The patient was seen and evaluated emergency department. Physical exam, vital signs were stable. The patient didn't have any acute and new complaints. Full workup was within normal limits and negative. The patient was deemed stable for discharge back to his detention. The patient was advised to follow- up with his primary care physician. The patient was agreeable to this and was discharged home in stable condition. Undiagnosed new problem with uncertain prognosis? @ -No Drug Therapy requiring intensive monitoring for toxicity (Heparin, Nitro, Insulin, Cardizem)? @ -No Were any procedures done? @ -No Diagnosis/symptom? @ -Medical screening exam Acute, or Chronic, or Acute on Chronic? @ -Acute Uncomplicated (without systemic symptoms) or Complicated (systemic symptoms)? @ -Uncomplicated Side effects of treatment? @ -No Exacerbation, Progression, or Severe Exacerbation? @ -No Poses a threat to life or bodily function? How? (Chest pain, [place], [place], pneumonia, PE, COPD, DKA, ARF, appy, cholecystitis, CVA, Diverticulitis, Homicidal, Suicidal, threat to staff... and all critical care pts) @ -No - Lab Data Result diagrams: 10/22/22 18:43 10/22/22 18:43 Lab Results 10/22/22 10/22/22 10/22/22 Range/Units 18:43 18:43 18:43 WBC 8.9 (3.8-10.6) k/uL RBC 4.69 (4.30-5.90) m/uL Hgb 14.3 (13.0-17.5) gm/dL Hct 38.9 L (39.0-53.0) % MCV 83.0 (80.0-100.0) fL MCH 30.4 (25.0-35.0) pg MCHC 36.7 (31.0-37.0) g/dL RDW 12.3 (11.5-15.5) % Plt Count 229 (150-450) k/uL MPV 7.9 Neutrophils % 66 % Lymphocytes % 26 % Monocytes % 5 % Eosinophils % 1 % Basophils % 1 % Neutrophils # 5.9 (1.3-7.7) k/uL Lymphocytes # 2.3 (1.0-4.8) k/uL Monocytes # 0.4 (0-1.0) k/uL Eosinophils # 0.1 (0-0.7) k/uL Basophils # 0.1 (0-0.2) k/uL PT 10.2 (9.0-12.0) sec INR 1.0 (<1.2) APTT 23.0 (22.0-30.0) sec Sodium 132 L (137-145) mmol/L Potassium 4.2 (3.5-5.1) mmol/L Chloride 96 L (98-107) mmol/L Carbon Dioxide 25 (22-30) mmol/L Anion Gap 11 mmol/L BUN 4 L (9-20) mg/dL Creatinine 0.54 L (0.66-1.25) mg/dL Est GFR (CKD-EPI)AfAm >90 (>60 ml/min/1.73 sqM) Est GFR (CKD-EPI)NonAf >90 (>60 ml/min/1.73 sqM) Glucose 165 H (74-99) mg/dL Plasma Lactic Acid Camilo (0.7-2.0) mmol/L Calcium 9.4 (8.4-10.2) mg/dL Total Bilirubin 0.5 (0.2-1.3) mg/dL AST 24 (17-59) U/L ALT 34 (4-49) U/L Alkaline Phosphatase 71 (38-126) U/L Troponin I (0.000-0.034) ng/mL Total Protein 7.5 (6.3-8.2) g/dL Albumin 4.8 (3.5-5.0) g/dL 10/22/22 10/22/22 Range/Units 18:43 18:43 WBC (3.8-10.6) k/uL RBC (4.30-5.90) m/uL Hgb (13.0-17.5) gm/dL Hct (39.0-53.0) % MCV (80.0-100.0) fL MCH (25.0-35.0) pg MCHC (31.0-37.0) g/dL RDW (11.5-15.5) % Plt Count (150-450) k/uL MPV Neutrophils % % Lymphocytes % % Monocytes % % Eosinophils % % Basophils % % Neutrophils # (1.3-7.7) k/uL Lymphocytes # (1.0-4.8) k/uL Monocytes # (0-1.0) k/uL Eosinophils # (0-0.7) k/uL Basophils # (0-0.2) k/uL PT (9.0-12.0) sec INR (<1.2) APTT (22.0-30.0) sec Sodium (137-145) mmol/L Potassium (3.5-5.1) mmol/L Chloride (98-107) mmol/L Carbon Dioxide (22-30) mmol/L Anion Gap mmol/L BUN (9-20) mg/dL Creatinine (0.66-1.25) mg/dL Est GFR (CKD-EPI)AfAm (>60 ml/min/1.73 sqM) Est GFR (CKD-EPI)NonAf (>60 ml/min/1.73 sqM) Glucose (74-99) mg/dL Plasma Lactic Acid Camilo 1.8 (0.7-2.0) mmol/L Calcium (8.4-10.2) mg/dL Total Bilirubin (0.2-1.3) mg/dL AST (17-59) U/L ALT (4-49) U/L Alkaline Phosphatase (38-126) U/L Troponin I <0.012 (0.000-0.034) ng/mL Total Protein (6.3-8.2) g/dL Albumin (3.5-5.0) g/dL Disposition Clinical Impression: Encounter for medical screening examination Disposition: HOME SELF-CARE Condition: Stable Instructions (If sedation given, give patient instructions): Normal Exam (ED) Is patient prescribed a controlled substance at d/c from ED?: No Referrals: Nonstaff,Physician [Primary Care Provider] - 1-2 days Time of Disposition: 20:30
[2022-10-22] MEDS ORDERED: LABETALOL 5 MG/ML VIAL MDV IVP STA (20:42)
[2022-10-22 20:58] VITALS: PULSE 128; RESP 18; TEMP 98.4
[2022-10-22 21:02] VITALS: BP 199/119
== END 2022-10-22 21:15 | disposition home or self-care (01) ==
LOC: EC 15:04
DX: I10 Essential (primary) hypertension (principal); E11.9 Type 2 diabetes mellitus without complications; F41.9 Anxiety disorder, unspecified; Z00.00 Encounter for general adult medical examination without abnormal findings; Z79.4 Long term (current) use of insulin; Z79.899 Other long term (current) drug therapy; Z88.8 Allergy status to other drugs, medicaments and biological substances; Z79.84 Long term (current) use of oral hypoglycemic drugs
CPT/HCPCS: 36415; 71046; 80053; 83605; 84484; 85025; 85610; 85730; 93005; 96374; 99285